=== PATIENT | female | born 1975 | race Caucasian/White ===

== ENCOUNTER 2019-02-07 09:58 | Day surgery (SDC) | payer OTHER ==
[2019-02-07] MEDS ORDERED: PROPOFOL 20 ML ×2 (11:41→12:16)
[2019-02-07] MEDS ORDERED: FENTAnyl 50 MCG/ML VIAL (11:42)
== END 2019-02-07 16:02 | disposition home or self-care (01) ==
LOC: GIL 09:58
DX: K64.8 Other hemorrhoids (principal); K57.30 Diverticulosis of large intestine without perforation or abscess without bleeding; K29.50 Unspecified chronic gastritis without bleeding; B96.81 Helicobacter pylori [H. pylori] as the cause of diseases classified elsewhere
CPT/HCPCS: 43239; 84703; 88305; 88312